=== PATIENT | male | born 1955 | race Caucasian/White ===

== ENCOUNTER 2022-08-19 16:42 | Inpatient (IN) | payer MEDICARE, OTHER ==
[~2022-08-19] VITALS: Ht 170.2 cm; Wt 86.2 kg
[2022-08-19 19:22] LABS: HEMATOCRIT 40.2 % (36.7-47.1); MEAN CORPUSCULAR HEMOGLOBIN 27.2 uug (23.8-33.4); PLATELET COUNT (AUTO) 339 K/uL (152-348)
[2022-08-19 19:24] LABS: CARBON DIOXIDE 25 mmol/L (21-32); CHLORIDE 103 mmol/L (98-107); CREATININE 0.8 mg/dL (0.6-1.3); GLUCOSE 151 mg/dL (74-106); UREA NITROGEN, BLOOD 19 mg/dL (7-18)
[2022-08-19 19:26] LABS: ETHANOL < 3 MG/DL (0-0)
[2022-08-19 19:27] LABS: THYROID STIMULATING HORMONE 2.982 mIU/mL (0.358-3.740)
[2022-08-19] MEDS ORDERED: LORAZEPAM 1 MG TABLET ONE (19:29)
[2022-08-19] MEDS ORDERED: LORAZEPAM 0.5 MG TABLET PO ONE (19:30)
[2022-08-19 19:31] LABS: ALANINE AMINOTRANSFERASE 31 U/L (16-63); ALKALINE PHOSPHATASE 76 U/L (50-136); ASPARTATE AMINOTRANSFERASE 6 U/L (15-37); BILIRUBIN,DIRECT < 0.1 mg/dL (0.0-0.2); BILIRUBIN,TOTAL 0.2 mg/dL (0.2-1.0); TOTAL PROTEIN, SERUM 7.9 g/dL (6.4-8.2)
[2022-08-19 19:32] LABS: ACETAMINOPHEN < 10.0 ug/mL (10-30)
--- NOTE | 2022-08-19 19:44 | NUR ---
Pt. is calm and cooperative
--- NOTE | 2022-08-19 19:44 | NUR ---
Pt. able to ambulate to the restroom with assistance.
[2022-08-19 20:11] LABS: *AMPHETAMINE, URINE NEGATIVE (NEGATIVE); *CANNABINOID, URINE NEGATIVE (NEGATIVE); *COCCAINE, URINE NEGATIVE (NEGATIVE); *OPIATE, URINE NEGATIVE (NEGATIVE); *PHENCYCLIDINE SCREEN,URINE NEGATIVE (NEGATIVE)
--- NOTE | 2022-08-19 20:15 | NUR ---
called for bed. Patient will be transfered to MHU room 139B
[2022-08-19 20:19] LABS: *BILIRUBIN,URIN NEGATIVE (NEGATIVE); *CLARITY,URINE CLEAR (CLEAR); *COLOR,URINE YELLOW (YELLOW); *KETONES,URINE 1+ (NEGATIVE); LEUKOCYTE ESTERASE ,URINE NEGATIVE (NEGATIVE); NITRITE, URINE NEGATIVE (NEGATIVE); UGLUCOSE TRACE (NEGATIVE)
[2022-08-19 20:22] LABS: *BLOOD, URINE TRACE (NEGATIVE)
--- NOTE | 2022-08-19 20:32 | NUR ---
Report endorsed to [facility] to room 139B, pt. is alert and oriented, checked belongings and signed. pt. was place at 5150 hold at 1941, medically cleared by Dr. Montalvo at 1999.
--- NOTE | 2022-08-19 21:31 | NUR ---
Patient transfered to MHU via wheelchair by laundry housekeeping aide Herbie STOKES
[2022-08-19 21:34] LABS: BACTERIA,URINE FEW /HPF (NONE SEEN); WBC,URINE 0-3 /HPF (0-3)
--- NOTE | 2022-08-19 21:34 | NUR ---
Pt. admitted to [facility] RM 139B , under care of Dr. Yang Belongs List completed.
[2022-08-19 21:35] LABS: SQUAMOUS EPITHELIAL CELL,UR FEW /HPF (NONE SEEN)
[2022-08-19 21:45] VITALS: BP 157/78
--- NOTE | 2022-08-19 21:50 | NUR ---
GPS: made aware of blood sugar result of 226mg/dl. No new orders given at this time.
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
[2022-08-19] MEDS ORDERED: DIVA125T2 PO (22:28)
[2022-08-19] MEDS ORDERED: METF-494 PO (22:28)
[2022-08-19] MEDS ORDERED: INSU100V28 (22:28)
[2022-08-19] MEDS ORDERED: SENN-18 PO (22:28)
[2022-08-19] MEDS ORDERED: LEVE500T9 PO (22:28)
[2022-08-19] MEDS ORDERED: FERR325T28 PO (22:28)
[2022-08-19] MEDS ORDERED: FLUO20CA42 PO (22:28)
[2022-08-19] MEDS ORDERED: INSU3INS6 SQ (22:28)
[2022-08-19] MEDS ORDERED: METO-356 PO (22:28)
[2022-08-19] MEDS ORDERED: BISA10SU61 RC (22:28)
[2022-08-19] MEDS ORDERED: ASPI81TA31 PO (22:28)
[2022-08-19] MEDS ORDERED: AMLO10TA4 PO (22:28)
[2022-08-19] MEDS ORDERED: BISACODYL 10 MG SUPP.RECT RC SCH (22:45)
[2022-08-19] MEDS ORDERED: SENNOSIDES 1 TABLET PO PRN (22:45)
[2022-08-19] MEDS ORDERED: MAG HYDROX/AL HYDROX/SIMETH 30 ML LIQUID UDC PO PRN (23:15)
[2022-08-19] MEDS ORDERED: MAGNESIUM HYDROXIDE 30 ML LIQUID UDC PO PRN (23:15)
[2022-08-19] MEDS ORDERED: TEMAZEPAM 7.5 MG CAPSULE PO PRN (23:15)
[2022-08-19] MEDS ORDERED: ACETAMINOPHEN 325 MG TABLET PO PRN (23:15)
[2022-08-19] MEDS ORDERED: CLONAZEPAM 0.5 MG TABLET PO PRN (23:15)
[2022-08-19] MEDS ORDERED: BLOOD SUGAR DIAGNOSTIC 1 EACH STRIP VI ONE (23:15)
[2022-08-20 07:30] VITALS: BP_SYST 139; BP_SYST 19; BP_DIAS 76
[2022-08-20] MEDS ORDERED: METFORMIN XR 500 MG TAB.SR.24H PO SCH (08:00)
[2022-08-20] MEDS: METFORMIN HCL 500 MG TABLET PO SCH ×2 (08:08→17:27)
[2022-08-20] MEDS ORDERED: BISACODYL 10 MG SUPP.RECT RC PRN (08:20)
[2022-08-20 08:24] LABS: BILIRUBIN,TOTAL 0.3 mg/dL (0.2-1.0); CREATININE 0.9 mg/dL (0.6-1.3); TOTAL PROTEIN, SERUM 7.7 g/dL (6.4-8.2)
[2022-08-20] MEDS: ASPIRIN 81 MG TAB.CHEW PO SCH (09:04)
[2022-08-20] MEDS: METOPROLOL SUCCINATE XL 25 MG TAB.SR.24H PO SCH (09:05)
[2022-08-20] MEDS: levETIRAcetam 500 MG TABLET PO SCH ×2 (09:05→20:33)
[2022-08-20] MEDS: FERROUS SULFATE 325 MG TABEC PO SCH (09:06)
[2022-08-20] MEDS: DIVALPROEX 125 MG TABLET.DR PO SCH (09:06)
[2022-08-20] MEDS: AMLODIPINE 10 MG TABLET PO SCH (09:08)
[2022-08-20] MEDS ORDERED: DIVALPROEX 125 MG TABLET.DR PO SCH (10:00)
[2022-08-20 16:00] VITALS: BP 134/71
[2022-08-20] MEDS: FLUOXETINE HCL 20 MG CAPSULE PO SCH (16:17)
--- NOTE | 2022-08-20 16:17 | NUR ---
Pharmacy was late to clear/verify and make available to obtain from [facility].
--- NOTE | 2022-08-20 17:53 | NUR ---
Patient stayed in room for the entire shift sleeping. Patient is compliant with medication regimen and POC.
--- NOTE | 2022-08-20 19:26 | NUR ---
Received orders from Dr. Lai to place patient on a Mild Sliding Scale with Accu Check. Gave patient Metformin BID during this shift.
[2022-08-20] MEDS ORDERED: DEXTROSE 50% 50 ML DISP.SYRIN IV PRN (20:00)
[2022-08-20] MEDS: BLOOD SUGAR DIAGNOSTIC 1 EACH STRIP VI SCH (20:33)
[2022-08-20] MEDS: OLANZAPINE 2.5 MG TABLET PO SCH (20:33)
[2022-08-20] MEDS: INSULIN REGULAR, HUMAN 300 UNIT/3 ML VIAL SQ PRN (20:35)
--- NOTE | 2022-08-20 21:00 | NUR ---
RECEIVED PATIENT IN HIS ROOM IN BED. HE IS NOTED AWAKE A/O X 3. HE IS NOTED CALM AND PLEASANT UPON APPROACHED. HE STATED, "I AM HERE BECAUSE I NEED AN EVALUATION. I NEED AND EVALUATION SO I CAN GO BACK HOME". NO AGGRESSIVE BX NOTED AT THIS TIME. ACCU CHECK IS 214. HE IS ABLE TO COMPLY WITH HIS MEDICATION REGIMENT DIET AND CARE. HE IS REASSURED FOR HIS SAFETY. HIS V/S ARE STABLE, HE IS IN NO DISTRESS. PO FLUIDS AND SNACKS WERE GIVEN. WILL CONTINUE TO MONITOR.
[2022-08-20 21:03] VITALS: BP 133/74
[2022-08-21] MEDS: BLOOD SUGAR DIAGNOSTIC 1 EACH STRIP VI SCH ×4 (06:38→20:05)
[2022-08-21 07:30] VITALS: BP 169/86
[2022-08-21] MEDS: FLUOXETINE HCL 20 MG CAPSULE PO SCH (08:55)
[2022-08-21] MEDS: METOPROLOL SUCCINATE XL 25 MG TAB.SR.24H PO SCH (08:55)
[2022-08-21] MEDS: DIVALPROEX 125 MG TABLET.DR PO SCH (08:55)
[2022-08-21] MEDS: FERROUS SULFATE 325 MG TABEC PO SCH (08:55)
[2022-08-21] MEDS: METFORMIN HCL 500 MG TABLET PO SCH ×2 (08:55→17:17)
[2022-08-21] MEDS: ASPIRIN 81 MG TAB.CHEW PO SCH (08:55)
[2022-08-21] MEDS: AMLODIPINE 10 MG TABLET PO SCH (08:56)
[2022-08-21] MEDS: levETIRAcetam 500 MG TABLET PO SCH ×2 (08:56→20:58)
[2022-08-21] MEDS: INSULIN REGULAR, HUMAN 300 UNIT/3 ML VIAL SQ PRN ×3 (09:00→20:08)
--- NOTE | 2022-08-21 12:30 | NUR ---
Patient blood glucose is 210, patient refuses regular insulin at this time.
[2022-08-21] MEDS: NUTRISOURCE FIBER 4 GM PACKET PO SCH ×2 (13:30→17:30)
--- NOTE | 2022-08-21 14:32 | NUR ---
JULIA Initial Discharge Note: Pt currently resides at [facility] located at [address] [place] [address] ([phone]). JULIA contacted pt's person to notify such as the public guardian, Coretta ([phone]). JULIA left a voicemail for a call back to discuss pt's discharge plan. JULIA will continue to call Coretta. UJLIA will continue to work with pt, family and MD to ensure a safe and proper discharge plan.
--- NOTE | 2022-08-21 15:50 | NUR ---
Patient is calm, sociable, cooperative with nursing carte and compliant with medications. A/O X 2 -3 to person, place. Self care. Patient is encourage to verbalize feelings and emotions. Fall and safety precautions implemented.
[2022-08-21 16:22] VITALS: BP 137/71
--- NOTE | 2022-08-21 17:27 | NUR ---
Blood glucose is 166, 3 units of regular insulin given per sliding scale.
[2022-08-21 20:25] VITALS: BP 139/76
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
[2022-08-21] MEDS: OLANZAPINE 2.5 MG TABLET PO SCH (20:58)
[2022-08-22] MEDS: BLOOD SUGAR DIAGNOSTIC 1 EACH STRIP VI SCH ×4 (06:31→20:18)
[2022-08-22 07:30] VITALS: BP 158/71
[2022-08-22] MEDS: METFORMIN HCL 500 MG TABLET PO SCH ×2 (09:00→17:07)
[2022-08-22] MEDS: FERROUS SULFATE 325 MG TABEC PO SCH (09:00)
[2022-08-22] MEDS: FLUOXETINE HCL 20 MG CAPSULE PO SCH (09:00)
[2022-08-22] MEDS: DIVALPROEX 125 MG TABLET.DR PO SCH (09:00)
[2022-08-22] MEDS: levETIRAcetam 500 MG TABLET PO SCH ×2 (09:01→20:18)
[2022-08-22] MEDS: METOPROLOL SUCCINATE XL 25 MG TAB.SR.24H PO SCH (09:01)
[2022-08-22] MEDS: AMLODIPINE 10 MG TABLET PO SCH (09:01)
[2022-08-22] MEDS: ASPIRIN 81 MG TAB.CHEW PO SCH (09:01)
[2022-08-22] MEDS: INSULIN REGULAR, HUMAN 300 UNIT/3 ML VIAL SQ PRN ×3 (09:03→20:19)
[2022-08-22] MEDS: NUTRISOURCE FIBER 4 GM PACKET PO SCH ×2 (09:10→17:33)
--- NOTE | 2022-08-22 12:44 | NUR ---
JULIA Public Guardian Contact: JULIA contacted pt's public guardian, Coretta ([phone]) and left a voicemail again for a call back to discuss pt's discharge plan.
--- NOTE | 2022-08-22 12:45 | NUR ---
JULIA Public Guardian Note: JULIA contacted the officer of the day at ([phone]) provided by the public guardian, Coretta in her voicemail and left a voicemail with a contact information for a call back.
--- NOTE | 2022-08-22 14:29 | NUR ---
Patient is quiet, isolative, withdrawn, thankful. Pt. states "Thank you so much for everything you do. I appreciate it. God bless!" A/O X 2 to person, place. Patient blood glucose is 175, 3 units of regular insulin given per sliding scale. Self care. Patient is encourage to verbalize feelings. Fall and safety precautions implemented.
--- NOTE | 2022-08-22 16:39 | NUR ---
Patient blood glucose is 126, no insulin given.
[2022-08-22 16:49] VITALS: BP 134/77
[2022-08-22 19:48] VITALS: BP 142/72
[2022-08-22] MEDS: OLANZAPINE 2.5 MG TABLET PO SCH (20:18)
--- NOTE | 2022-08-22 21:00 | NUR ---
Received patient in his room in bed. He is noted awake A/o x 3 able to verbalized his feelings. Patient noted pleasant upon approched, he is hyperverbal. he moves form one topic to the next, "i like to watch soccer, my favorite team is [employer] but they lost. i am from [facility], and i used to go to [facility]...". Pt denied SI/HI/VH/AH, he is able to verbally CFS. His V/S are stable, he is in no distress, patient was given PO fluids and snacks. his accu checks was 189. 3 units of insulin sliding scale were administered, He continue compliant with his medication regiment diet and plan of care, Safety and fall precautions are in place. he is reassured for his safety. will continue to monitor,
[2022-08-23] MEDS: BLOOD SUGAR DIAGNOSTIC 1 EACH STRIP VI SCH ×4 (06:40→20:00)
--- NOTE | 2022-08-23 06:52 | NUR ---
Patient slept for approx 3 hrs through the night. He is aware and agreeable with his discharge. will continue to monitor. Addendum: 08/23/22 at 0701 by YAMIL DOTSON RN wrong patient. disregard noted. eg
[2022-08-23 07:46] VITALS: BP 155/71
[2022-08-23] MEDS: METFORMIN HCL 500 MG TABLET PO SCH ×2 (08:37→17:07)
[2022-08-23] MEDS: FLUOXETINE HCL 20 MG CAPSULE PO SCH (08:37)
[2022-08-23] MEDS: DIVALPROEX 125 MG TABLET.DR PO SCH (08:38)
[2022-08-23] MEDS: FERROUS SULFATE 325 MG TABEC PO SCH (08:38)
[2022-08-23] MEDS: AMLODIPINE 10 MG TABLET PO SCH (08:38)
[2022-08-23] MEDS: ASPIRIN 81 MG TAB.CHEW PO SCH (08:38)
[2022-08-23] MEDS: levETIRAcetam 500 MG TABLET PO SCH ×2 (08:38→20:18)
[2022-08-23] MEDS: METOPROLOL SUCCINATE XL 25 MG TAB.SR.24H PO SCH (08:39)
[2022-08-23] MEDS: NUTRISOURCE FIBER 4 GM PACKET PO SCH ×2 (08:39→17:12)
[2022-08-23] MEDS: INSULIN REGULAR, HUMAN 300 UNIT/3 ML VIAL SQ PRN ×4 (08:44→20:28)
--- NOTE | 2022-08-23 14:10 | NUR ---
Patient is isolative, depressed, withdrawn, cooperative with nursing care. Blood glucose is 157, 2 units of regular insulin given per sliding scale. Patient keeps saying "Thank you very much for everything. God bless you" Patient is compliant with medications. Patient is encourage to verbalize concerns. Fall and safety precautions implemented.
[2022-08-23 16:24] VITALS: BP 141/68
[2022-08-23 19:56] VITALS: BP 164/82
[2022-08-23] MEDS: OLANZAPINE 2.5 MG TABLET PO SCH (20:18)
[2022-08-23] MEDS: INSULIN GLARGINE,HUM 300 UNITS/3 ML CARTRIDGE SQ SCH (20:22)
[2022-08-24] MEDS: BLOOD SUGAR DIAGNOSTIC 1 EACH STRIP VI SCH ×4 (06:36→20:20)
[2022-08-24 07:39] VITALS: BP 148/75
[2022-08-24] MEDS: levETIRAcetam 500 MG TABLET PO SCH ×2 (08:23→20:20)
[2022-08-24] MEDS: METFORMIN HCL 500 MG TABLET PO SCH ×2 (08:23→17:10)
[2022-08-24] MEDS: ASPIRIN 81 MG TAB.CHEW PO SCH (08:23)
[2022-08-24] MEDS: DIVALPROEX 125 MG TABLET.DR PO SCH (08:23)
[2022-08-24] MEDS: METOPROLOL SUCCINATE XL 25 MG TAB.SR.24H PO SCH (08:24)
[2022-08-24] MEDS: AMLODIPINE 10 MG TABLET PO SCH (08:24)
[2022-08-24] MEDS: FERROUS SULFATE 325 MG TABEC PO SCH (08:25)
[2022-08-24] MEDS: NUTRISOURCE FIBER 4 GM PACKET PO SCH ×2 (08:25→17:10)
[2022-08-24] MEDS: FLUOXETINE HCL 20 MG CAPSULE PO SCH (08:25)
[2022-08-24] MEDS: INSULIN REGULAR, HUMAN 300 UNIT/3 ML VIAL SQ PRN ×3 (11:38→20:19)
--- NOTE | 2022-08-24 13:41 | NUR ---
Received patient alert and oriented x3 verbalizer needs known ,patient compliant with all medication , isolative and withdrawn encourage to attend in group activity .patient requested assisted with all ADLS,will continue close onitoring.
[2022-08-24 16:06] VITALS: BP 139/77
[2022-08-24 19:40] VITALS: BP 140/62
[2022-08-24] MEDS: OLANZAPINE 2.5 MG TABLET PO SCH (20:20)
[2022-08-24] MEDS: INSULIN GLARGINE,HUM 300 UNITS/3 ML CARTRIDGE SQ SCH (20:20)
--- NOTE | 2022-08-24 20:30 | NUR ---
Received patient in his room sitting in bed. He is noted A/O x 3 able to verbalized his feelings. Patient noted hyperverbal and hypersexual, he stated, "Have you been in [place]? there are lots of whores there". Pt denied SI/HI/VH/AH, he is able to verbally CFS. His V/S are stable, he is in no distress, patient was given PO fluids and snacks. his accu checks was 189. 3 units of insulin sliding scale were administered, He continue compliant with his medication regiment diet and plan of care, Safety and fall precautions are in place. he is reassured for his safety. will continue to monitor,
[2022-08-25] MEDS: BLOOD SUGAR DIAGNOSTIC 1 EACH STRIP VI SCH ×4 (06:39→20:50)
[2022-08-25 07:27] VITALS: BP 144/71
[2022-08-25] MEDS: DIVALPROEX 125 MG TABLET.DR PO SCH (08:30)
[2022-08-25] MEDS: ASPIRIN 81 MG TAB.CHEW PO SCH (08:30)
[2022-08-25] MEDS: FERROUS SULFATE 325 MG TABEC PO SCH (08:31)
[2022-08-25] MEDS: METFORMIN HCL 500 MG TABLET PO SCH ×2 (08:31→17:14)
[2022-08-25] MEDS: FLUOXETINE HCL 20 MG CAPSULE PO SCH (08:31)
[2022-08-25] MEDS: AMLODIPINE 10 MG TABLET PO SCH (08:31)
[2022-08-25] MEDS: levETIRAcetam 500 MG TABLET PO SCH ×2 (08:31→20:48)
[2022-08-25] MEDS: METOPROLOL SUCCINATE XL 25 MG TAB.SR.24H PO SCH (08:32)
[2022-08-25] MEDS: INSULIN REGULAR, HUMAN 300 UNIT/3 ML VIAL SQ PRN ×3 (08:34→20:52)
[2022-08-25] MEDS: NUTRISOURCE FIBER 4 GM PACKET PO SCH ×2 (08:35→17:13)
--- NOTE | 2022-08-25 10:22 | NUR ---
JULIA Conservator Contact: JULIA contacted pt's conservator, Denys ([phone]) from the [facility] office. Denys provided JULIA with the probate conservator paperwork. JULIA placed the paperwork in the patient's chart. Denys is aware and agreeable for pt's discharge plan to return to [facility] senior living facility ([phone]) upon discharge.
--- NOTE | 2022-08-25 15:35 | NUR ---
Patient is alert and oriented x3, cooperative with care and medication, Patient noted hyperverbal and hypersexual, he stated that can you show me your tattoo ? nurse told him i don't have Tattoo ,patient stated that maybe in your buttock. patient denies any suicidal ideation ,encouraged to attend in group activity ,will continue close monitoring.
--- NOTE | 2022-08-25 16:03 | NUR ---
Firearms Report: Pharmacist Per Diem completed and submitted a [employer] firearms report for 5150 a danger to others and grave disability certifications. A copy of report has been placed in patient chart.
[2022-08-25 16:11] VITALS: BP 139/108
[2022-08-25 19:43] VITALS: BP 152/88
[2022-08-25] MEDS: OLANZAPINE 5 MG TABLET PO SCH (20:48)
[2022-08-25] MEDS: INSULIN GLARGINE,HUM 300 UNITS/3 ML CARTRIDGE SQ SCH (20:51)
[2022-08-25] MEDS ORDERED: OLANZAPINE 2.5 MG TABLET PO SCH (21:00)
[2022-08-26] MEDS: BLOOD SUGAR DIAGNOSTIC 1 EACH STRIP VI SCH ×4 (06:40→21:54)
[2022-08-26 07:32] VITALS: BP 140/76
[2022-08-26] MEDS: METFORMIN HCL 500 MG TABLET PO SCH ×2 (08:06→17:25)
[2022-08-26] MEDS: DIVALPROEX 125 MG TABLET.DR PO SCH (08:42)
[2022-08-26] MEDS: FERROUS SULFATE 325 MG TABEC PO SCH (08:42)
[2022-08-26] MEDS: levETIRAcetam 500 MG TABLET PO SCH ×2 (08:42→21:40)
[2022-08-26] MEDS: AMLODIPINE 10 MG TABLET PO SCH (08:42)
[2022-08-26] MEDS: FLUOXETINE HCL 20 MG CAPSULE PO SCH (08:42)
[2022-08-26] MEDS: ASPIRIN 81 MG TAB.CHEW PO SCH (08:42)
[2022-08-26] MEDS: METOPROLOL SUCCINATE XL 25 MG TAB.SR.24H PO SCH (08:43)
[2022-08-26] MEDS: NUTRISOURCE FIBER 4 GM PACKET PO SCH ×2 (09:46→17:48)
[2022-08-26] MEDS: INSULIN REGULAR, HUMAN 300 UNIT/3 ML VIAL SQ PRN ×3 (12:25→21:32)
[2022-08-26 16:01] VITALS: BP 169/87
[2022-08-26 19:51] VITALS: BP 152/82
[2022-08-26] MEDS: OLANZAPINE 5 MG TABLET PO SCH (21:40)
[2022-08-26] MEDS: INSULIN GLARGINE,HUM 300 UNITS/3 ML CARTRIDGE SQ SCH (21:43)
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
[2022-08-27 07:30] VITALS: BP 154/77
[2022-08-27] MEDS: BLOOD SUGAR DIAGNOSTIC 1 EACH STRIP VI SCH ×4 (07:30→20:04)
--- NOTE | 2022-08-27 09:18 | NUR ---
JULIA Discharge Contact: JULIA contacted Shahnaz from in admissions at [facility] and left a voicemail for a call back regarding pt's anticipated return date this week.
[2022-08-27] MEDS: FLUOXETINE HCL 20 MG CAPSULE PO SCH (09:22)
[2022-08-27] MEDS: levETIRAcetam 500 MG TABLET PO SCH ×2 (09:22→20:04)
[2022-08-27] MEDS: FERROUS SULFATE 325 MG TABEC PO SCH (09:22)
[2022-08-27] MEDS: AMLODIPINE 10 MG TABLET PO SCH (09:23)
[2022-08-27] MEDS: DIVALPROEX 125 MG TABLET.DR PO SCH (09:23)
[2022-08-27] MEDS: ASPIRIN 81 MG TAB.CHEW PO SCH (09:24)
[2022-08-27] MEDS: METOPROLOL SUCCINATE XL 25 MG TAB.SR.24H PO SCH (09:25)
[2022-08-27] MEDS: NUTRISOURCE FIBER 4 GM PACKET PO SCH ×2 (09:26→17:20)
[2022-08-27] MEDS: INSULIN REGULAR, HUMAN 300 UNIT/3 ML VIAL SQ PRN ×4 (09:28→20:12)
[2022-08-27] MEDS: METFORMIN HCL 500 MG TABLET PO SCH ×2 (09:34→17:25)
--- NOTE | 2022-08-27 14:14 | NUR ---
SW Discharge Update: Shahnaz from admissions at [facility] ([phone]) returned this rewriter's call and informed this SW that she will follow-up with her DON and call me back regarding pts' return. SW informed her that this SW was told pt is accepted back from previous conversation. Shahnaz stated she is aware of that but she has to confirm once again.
[2022-08-27 16:00] VITALS: BP 124/68
--- NOTE | 2022-08-27 18:46 | NUR ---
Patient has been compliant throughout shift. Patient is stable with no distress noted. All medication given as ordered. Insulin given according sliding scale. Safety measure implemented Will endorse to oncoming nurse.
[2022-08-27] MEDS: OLANZAPINE 5 MG TABLET PO SCH (20:04)
[2022-08-27 20:05] VITALS: BP 149/73
[2022-08-27] MEDS: INSULIN GLARGINE,HUM 300 UNITS/3 ML CARTRIDGE SQ SCH (20:24)
[2022-08-28] MEDS: BLOOD SUGAR DIAGNOSTIC 1 EACH STRIP VI SCH ×4 (06:41→20:28)
[2022-08-28 07:30] VITALS: BP 158/91
[2022-08-28] MEDS: levETIRAcetam 500 MG TABLET PO SCH ×2 (08:17→20:29)
[2022-08-28] MEDS: METFORMIN HCL 500 MG TABLET PO SCH ×2 (08:17→17:21)
[2022-08-28] MEDS: FLUOXETINE HCL 20 MG CAPSULE PO SCH (08:17)
[2022-08-28] MEDS: FERROUS SULFATE 325 MG TABEC PO SCH (08:17)
[2022-08-28] MEDS: ASPIRIN 81 MG TAB.CHEW PO SCH (08:18)
[2022-08-28] MEDS: METOPROLOL SUCCINATE XL 25 MG TAB.SR.24H PO SCH (08:18)
[2022-08-28] MEDS: DIVALPROEX 125 MG TABLET.DR PO SCH (08:18)
[2022-08-28] MEDS: AMLODIPINE 10 MG TABLET PO SCH (08:18)
[2022-08-28] MEDS: NUTRISOURCE FIBER 4 GM PACKET PO SCH ×2 (09:23→17:00)
--- NOTE | 2022-08-28 10:59 | NUR ---
JULIA Discharge Update: JULIA contacted Shahnaz from admissions at [facility] ([phone]) and discussed pt's anticipated return this week. Shahnaz stated that pt cannot return to [facility]. However, Shahnaz informed this press writer that the pt is accepted to [facility] upon discharge. JULIA provided pt's conservator contact, Denys ([phone]) to inform him for approval prior to discharge.
[2022-08-28] MEDS: INSULIN REGULAR, HUMAN 300 UNIT/3 ML VIAL SQ PRN ×2 (11:54→20:32)
[2022-08-28 16:00] VITALS: BP 149/68
[2022-08-28 20:05] VITALS: BP 139/55
[2022-08-28] MEDS: OLANZAPINE 5 MG TABLET PO SCH (20:29)
[2022-08-28] MEDS: INSULIN GLARGINE,HUM 300 UNITS/3 ML CARTRIDGE SQ SCH (20:30)
--- NOTE | 2022-08-29 03:40 | NUR ---
Patient has been overly friendly at the start of the shift. This automotive service writer encouraged the patient to come out of his room for a snack, but the patient refused and wanted this automotive service writer to bring it to him. The patient is going to be discharged later today and is aware of that, but stated " I don't want to leave here ". Safety stratiges are in place. Patient denies SI and made a verbal contract for safety with this automotive service writer.
[2022-08-29] MEDS: BLOOD SUGAR DIAGNOSTIC 1 EACH STRIP VI SCH ×2 (06:21→12:05)
[2022-08-29 07:30] VITALS: BP 144/79
[2022-08-29] MEDS: levETIRAcetam 500 MG TABLET PO SCH (08:52)
[2022-08-29] MEDS: ASPIRIN 81 MG TAB.CHEW PO SCH (08:52)
[2022-08-29] MEDS: DIVALPROEX 125 MG TABLET.DR PO SCH (08:52)
[2022-08-29] MEDS: AMLODIPINE 10 MG TABLET PO SCH (08:53)
[2022-08-29] MEDS: FLUOXETINE HCL 20 MG CAPSULE PO SCH (08:53)
[2022-08-29] MEDS: METFORMIN HCL 500 MG TABLET PO SCH (08:53)
[2022-08-29] MEDS: FERROUS SULFATE 325 MG TABEC PO SCH (08:53)
[2022-08-29] MEDS: NUTRISOURCE FIBER 4 GM PACKET PO SCH (08:54)
[2022-08-29 08:55] VITALS: BP 144/79
[2022-08-29] MEDS: METOPROLOL SUCCINATE XL 25 MG TAB.SR.24H PO SCH (08:55)
[2022-08-29] MEDS: INSULIN REGULAR, HUMAN 300 UNIT/3 ML VIAL SQ PRN (09:05)
--- NOTE | 2022-08-29 13:46 | NUR ---
JULIA Discharge Note: Pt will be discharged to [facility] facility located at [address] [place] [id number] ([phone]) via ambulance transportation at 3PM. JULIA spoke with admin coordinator, Shahnaz ([phone]) at [facility] facility who states that they are ready to accept the pt today. Pt is aware and agreeable with discharge plan. JULIA spoke with pts conservator, Denys ([phone]) who is aware and agreeable with the discharge plan. Pt is alert and oriented x4, is unable to plan for self-care at this time. However, pt is willing to accept care at SNF. Pt denies any suicidal or homicidal ideation. Pt will follow-up at the facility with Psychiatrist, Dr. Herrera ([phone]) and Window Display Designer, Dr. Womack. Pt presents with calm mood and congruent affect. PHARMACY: [facility] ([phone]) [address], [facility] [address].
--- NOTE | 2022-08-29 14:35 | NUR ---
Gps/Evidence Custodian- Called [facility], report was given to Nursing Compositor Apprentice Enid STOKES. labor crew supervisor time arranged between 1500- 1530 Patient was well informed. All belongings given back to patient. No new complaints noted, no H.I., no S.I. cooperative, pleasant affect.
--- NOTE | 2022-08-29 16:05 | NUR ---
Gps/Parts Room Clerk- Discharged to [facility] via ambulance. pt. in good spirit no complaints noted
== END 2022-08-29 16:08 | DRG 881 ==
LOC: ER 16:51 → GPS 21:36
PROVIDERS: ADMIT Nurse Practitioner Psychiatric/Mental Health; ATTEND Registered Nurse
DX: F32.9 Major depressive disorder, single episode, unspecified (principal); E11.65 Type 2 diabetes mellitus with hyperglycemia; I69.354 Hemiplegia and hemiparesis following cerebral infarction affecting left non-dominant side; F39 Unspecified mood [affective] disorder; R45.850 Homicidal ideations; E66.9 Obesity, unspecified; Z68.30 Body mass index [BMI] 30.0-30.9, adult; E78.5 Hyperlipidemia, unspecified; I10 Essential (primary) hypertension; Z79.899 Other long term (current) drug therapy; Z87.891 Personal history of nicotine dependence; Z81.1 Family history of alcohol abuse and dependence; Z82.49 Family history of ischemic heart disease and other diseases of the circulatory system; Z83.3 Family history of diabetes mellitus
CPT/HCPCS: 36415; 80164; 84443; 85025; A4663; G0480; J1815